=== PATIENT | male | born 1990 | race Caucasian/White ===

== ENCOUNTER 2018-06-22 20:52 | Emergency (ER) | payer OTHER ==
[2018-06-22 21:14] VITALS: RESP 18
--- NOTE | 2018-06-22 22:12 | ED PDOC ---
HPI: General Adult Time Seen by Provider: 06/22/18 21:55 Chief Complaint (Nursing): Fever History Per: Patient History/Exam Limitations: no limitations Onset/Duration Of Symptoms: Days Have you had recent travel within the past 21 days to any of the following countries: [place], [place], [place] or [place]?: No Additional Complaint(s): No PMHx presenting with fever, states he had a fever on Tuesday and went to an urgent care center, was given a course of Azithromycin which he is to finish , states he's having a non-productive cough, runny nose, and nausea. No sore throat, no urinary symptoms. States he has some lower abdominal cramping. States he came to the ER because he was told by to come to the ER if the temperature went beyond 101 which it did today. Denies sick contacts. States he traveled to [facility] > 1 month ago. Past Medical History Reviewed: Historical Data, Nursing Documentation, Vital Signs Vital Signs: Last Vital Signs Temp 2330 F H 06/22/18 23:33 Pulse 86 06/22/18 23:33 Resp 18 06/22/18 23:33 BP 101/63 06/22/18 23:33 Pulse Ox 100 06/22/18 23:33 - Medical History PMH: No Chronic Diseases - Family History Family History: States: Unknown Family Hx - Allergies Allergies/Adverse Reactions: Allergies Allergy/AdvReac Type Severity Reaction Status Date / Time No Known Allergies Allergy Verified 06/22/18 21:54 Review of Systems ROS Statement: Except As Marked, All Systems Reviewed And Found Negative Review Of Systems: ROS cannot be obtained secondary to pt's inabilty to answer questions. Constitutional: Positive for: Fever Gastrointestinal: Positive for: Nausea Physical Exam - Reviewed Nursing Documentation Reviewed: Yes Vital Signs Reviewed: Yes - Physical Exam Appears: Positive for: Well, Non-toxic, No Acute Distress Head Exam: Positive for: ATRAUMATIC, NORMAL INSPECTION, NORMOCEPHALIC Skin: Positive for: Normal Color, Warm, DRY Eye Exam: Positive for: EOMI, Normal appearance, PERRL ENT: Positive for: Normal ENT Inspection Neck: Positive for: Normal, Painless ROM Cardiovascular/Chest: Positive for: Regular Rate, Rhythm Respiratory: Positive for: CNT, Normal Breath Sounds Gastrointestinal/Abdominal: Positive for: Normal Exam, Soft, Tenderness (Mild lower abdominal tenderness bilaterally, lower). Negative for: Organomegaly, Mass, Distended, Guarding, Rebound, Hernia Back: Positive for: Normal Inspection Extremity: Positive for: Normal ROM Neurologic/Psych: Positive for: Alert, Oriented - ECG O2 Sat by Pulse Oximetry: 99 Pulse Ox Interpretation: Normal Medical Decision Making Medical Decision MakinPM Patient with fever since Tuesday -afebrile currently -patient is very well appearing -explained to patient that his constellation of symptoms are most likely viral -offered CXR but patient refusing at this time -will check for influenza, will recommend supportive care 11PM -Patient consented to CXR: negative -Advised patient to alternate motrin and APAP -fever precautions given Disposition - Clinical Impression Clinical Impression: Fever - Disposition Referrals: Ernie Benjamin [Outside] Disposition Time: 23:30 Condition: CRITICAL Instructions: Fever of Unknown Origin, When to Worry About a Fever, Viral Upper Respiratory Infection, Adult (DC) Forms: Ernie Turner ([place]), [facility] ED School/Work Excuse
[2018-06-22 23:35] VITALS: BP 101/63; PULSE 86; TEMP 2330
[2018-06-22 23:37] VITALS: O2SAT 99
--- NOTE | 2018-06-23 09:32 | RAD ---
Date of service: 06/22/2018 HISTORY: cough, fever COMPARISON: No prior. TECHNIQUE: Chest PA and lateral FINDINGS: LUNGS: No active pulmonary disease. PLEURA: No significant pleural effusion identified. No pneumothorax apparent. CARDIOVASCULAR: Normal. OSSEOUS STRUCTURES: No significant abnormalities. VISUALIZED UPPER ABDOMEN: Normal. OTHER FINDINGS: None. IMPRESSION: No active disease.
== END 2018-06-22 23:35 | disposition home or self-care (01) ==
LOC: H.ER 20:52
DX: R50.9 Fever, unspecified (principal); R05 Cough